=== PATIENT | male | born 1975 | race Caucasian/White ===

== ENCOUNTER 2018-03-08 17:20 | Emergency (ER) | payer OTHER ==
[2018-03-08 17:27] VITALS: BP 136/78
[2018-03-08] MEDS ORDERED: BUFFERED LIDOCAINE 10 ML SYRINGE SUBQ STA (17:33)
--- NOTE | 2018-03-08 18:04 | ED Physician Documentation ---
PD HPI UPPER EXT INJURY - Stated complaint Stated Complaint: HAND LAC - Chief complaint Chief Complaint: Laceration - History obtained from History obtained from: Patient, Family - History of Present Illness Location: Left, Hand Type of injury: Laceration Where injury occurred: Home Timing - onset: Today Timing - duration: Minutes Timing - details: Abrupt onset, Still present Improved by: Rest, Immobilization Worsened by: Moving, Palpating Associated symptoms: No: Weakness, Numbness, Tingling, Swelling, Discolored Contributing factors: No: Anticoagulated Similar symptoms before: Has not had sx before Recently seen: Not recently seen - Additonal information Additional information: 43-year-old male was in his shop arranging his axes that are up on a wall and one of the [place] felt he instinctively went to grab it and it lacerated his hand. He denies any numbness or tingling denies any functional deficit demonstrates the use of his fingers easily. Review of Systems Constitutional: denies: Fever Respiratory: denies: Cough GI: denies: Vomiting Skin: reports: Laceration (s). denies: Rash Musculoskeletal: reports: Extremity pain. denies: Neck pain, Back pain PD PAST MEDICAL HISTORY - Past Medical History Past Medical History: Yes Respiratory: Sleep apnea - Past Surgical History Past Surgical History: No - Present Medications Home Medications: Ambulatory Orders Medication Instructions Recorded Confirmed No Known Home Medications [No 03/08/18 03/08/18 Known Home Medications] - Allergies Allergies/Adverse Reactions: Allergies Allergy/AdvReac Type Severity Reaction Status Date / Time No Known Drug Allergies Allergy Verified 03/08/18 17:27 - Social History Does the pt smoke?: No Smoking Status: Never smoker Does the pt drink ETOH?: No Does the pt have substance abuse?: No - Immunizations Immunizations are current?: Yes - POLST Patient has POLST: No PD ED PE NORMAL - Vitals Vital signs reviewed: Yes (normal) - General General: Alert and oriented X 3, No acute distress, Well developed/nourished - HEENT HEENT: Atraumatic, PERRL - Respiratory Respiratory: No respiratory distress - Derm Derm: Normal color, Warm and dry, No rash - Extremities Extremities: No deformity, No edema, Other (There is a 4cm flap laceration to the left palm. The laceration is over the distal 3rd MC. The wound does not appear to involve deeper structures and function is entirely intact. ) - Neuro Neuro: No motor deficit, No sensory deficit Eye Opening: Spontaneous Motor: Obeys Commands Verbal: Oriented GCS Score: 15 - Psych Psych: Normal mood, Normal affect Results - Vitals Vitals: Vital Signs - 24 hr 03/08/18 17:24 Temperature 36.8 C Heart Rate 77 Respiratory 16 Rate Blood Pressure 136/78 H O2 Saturation 99 Oxygen O2 Source Room air Procedures - Laceration (location) left palm Length in cm: 4 Wound type: Curved, Flap, Clean Neurovascular status: Sensory intact, Motor intact, Vascular intact Anesthesia: Lidocaine 1%, With bicarb Wound Preparation: Hibiclens, Irrigated copiously NS, Wound explored, To the base Skin layer closure: Nylon, Interrupted, Size #-0 - enter number (4-0) Other: Patient tolerated well, No complications, Neurovascular intact, Dressing applied, Tetanus UTD Complexity: Simple PD MEDICAL DECISION MAKING - ED course Complexity details: considered differential, d/w patient, d/w family ED course: 43-year-old male with a large gaping wound to his left palm after catching a falling ax, is sutured. He was able to rescue the 1929 restored ax. Departure - Departure Disposition: 01 Home, Self Care Clinical Impression: Laceration of palm Qualifiers: Encounter type: initial encounter Laterality: left Qualified Code(s): S61.412A - Laceration without foreign body of left hand, initial encounter Condition: Stable Instructions: ED Laceration Hand Follow-Up: Your, doctor [Other] Comments: Sutures should be removed in 10 days.
== END 2018-03-08 18:13 | disposition home or self-care (01) ==
LOC: ED 17:20
DX: S61.412A Laceration without foreign body of left hand, initial encounter (principal); W27.0XXA Contact with workbench tool, initial encounter; Y92.513 Shop (commercial) as the place of occurrence of the external cause
CPT/HCPCS: 12002; 99282; 99283

== ENCOUNTER 2021-01-30 11:28 | Emergency (ER) | payer OTHER ==
--- NOTE | 2021-01-30 13:45 | XRAY Report ---
PROCEDURE: Lumbar Spine 2 View INDICATIONS: acute spinal pain TECHNIQUE: 2 views of the lumbar spine were acquired. COMPARISON: None. FINDINGS: Bones: 5 [id number] vertebrae are present. There is normal bony alignment. No vertebral body compression fractures. No suspicious bony lesions. Moderate to severe disc space narrowing is prese nt at L5-S1. Soft tissues: Overlying bowel gas pattern is normal. No suspicious soft tissue calcifications. IMPRESSION: Degenerative changes at L5-S1. No visualized acute fracture or dislocation. However, occ ult injury cannot be excluded. Recommend short interval imaging follow-up in 7-10 days as clinically indicated for additional evaluation. Reviewed by: Shelby Franco MD on 01/30/2021 1:44 PM PDT Approved by: Shelby Franco MD on 01/30/2021 1:44 PM PDT Station ID: [id number]
--- NOTE | 2021-01-30 14:16 | ED Physician Documentation ---
History of Present Illness - Stated complaint Stated Complaint: BACK PX - Chief complaint Chief Complaint: Back Pain - History obtained from History obtained from: Patient - Additonal information Additional information: Patient comes emergency department chief complaint of low back pain that started about an hour and a half ago while he was working in the yard. Patient states he stepped forward just the wrong way and suddenly felt a pain in the midline of his spine in his lower lumbar area. Patient denies any numbness or tingling or pain going down his legs. No loss of bowel or bladder control. No pain anywhere else. Patient states that it does not feel like a spasmjust pain. He has had trouble with his low back for quite some time. He states he was in the for a number of years and being a very tall person, I did do a lot of heavy lifting and other tasks that strained his back. Patient has never had an MRI to more specifically diagnose his lumbar issues. In fact, he states he is never even had a x-ray of the area. Patient states he is a recovering alcoholic for many years and will take anti-inflammatories at home if needed. He states he mainly wanted to make sure that something more serious was not wrong and hopefully get some imaging.Patient states it feels the worse when he sits down and then tries to get up. He states that for now, the most comfortable position for him is to be standing, leaning against something with his hands. Review of Systems Ten Systems: 10 systems reviewed and negative Constitutional: reports: Reviewed and negative Eyes: reports: Reviewed and negative Ears: reports: Reviewed and negative Nose: reports: Reviewed and negative Throat: reports: Reviewed and negative Cardiac: reports: Reviewed and negative Respiratory: reports: Reviewed and negative GI: reports: Reviewed and negative : reports: Reviewed and negative Skin: reports: Reviewed and negative Musculoskeletal: reports: Back pain Neurologic: reports: Reviewed and negative Psychiatric: reports: Reviewed and negative Endocrine: reports: Reviewed and negative Immunocompromised: reports: Reviewed and negative PD PAST MEDICAL HISTORY - Past Medical History Respiratory: Sleep apnea - Past Surgical History Past Surgical History: No - Present Medications Home Medications: Ambulatory Orders Medication Instructions Recorded Confirmed No Known Home Medications 03/08/18 03/08/18 - Allergies Allergies/Adverse Reactions: Allergies Allergy/AdvReac Type Severity Reaction Status Date / Time No Known Drug Allergies Allergy Verified 01/30/21 11:40 - Social History Does the pt smoke?: No Smoking Status: Never smoker Does the pt drink ETOH?: No Does the pt have substance abuse?: No - Immunizations Immunizations are current?: Yes - POLST Patient has POLST: No PD ED PE NORMAL - Vitals Vital signs reviewed: Yes - General General: Alert and oriented X 3, No acute distress, Well developed/nourished - HEENT HEENT: Atraumatic, PERRL, EOMI, Moist mucous membranes - Neck Neck: Supple, no meningeal sign - Respiratory Respiratory: No respiratory distress - Abdomen Abdomen: Soft, Non tender, Non distended - Back Back: No CVA TTP, Other (Mild tenderness to palpation over the L1 area. No step- off or deformity.) - Derm Derm: Warm and dry - Extremities Extremities: No deformity - Neuro Neuro: Alert and oriented X 3 - Psych Psych: Normal mood, Normal affect Results - Vitals Vitals: Vital Signs - 24 hr 01/30/21 01/30/21 11:34 14:24 Temperature 37.2 C 37.0 C Heart Rate 88 71 Respiratory 18 16 Rate Blood Pressure 147/88 H 121/75 O2 Saturation 99 98 Oxygen O2 Source Room air PD MEDICAL DECISION MAKING - ED course Complexity details: reviewed results, re-evaluated patient, considered differential, d/w patient ED course: Patient was sent for x-rays of the lumbar spine, which showed moderate to severe disc height loss at the L5-S1 space and moderate degenerative changes. I discussed with the patient that the area where he is hurting corresponds with the degeneration and disc disease that is showing up on the x-ray. I have adv ised him that MRI will most likely be very helpful in follow-up and that if he continues to have issues in this area, he would probably be well served by seeing a community product specialist. We have discussed home management of the symptoms, as well as the usual indications for return. Vision is declined prescription for any further analgesia or symptomatic relief. Departure - Departure Disposition: 01 Home, Self Care Clinical Impression: Degenerative disc disease at L5-S1 level Condition: Stable Instructions: ED DDD Degenerative Disk Disease Comments: Your x-rays show severe disc space narrowing at the L5-S1 level. This corresp onds with the area where you are hurting. Most likely, this acute episode will blow over on its own, but you will be at risk for further issues in the future in this part of your spine. Please follow up with your primary doctor to discuss scheduling an MRI to get a better look at the area. Discharge Date/Time: 01/30/21 14:34
[2021-01-30 14:25] VITALS: BP 121/75
== END 2021-01-30 14:34 | disposition home or self-care (01) ==
LOC: ED 11:28
DX: M51.37 Other intervertebral disc degeneration, lumbosacral region (principal)
CPT/HCPCS: 99283; 99284